=== PATIENT | male | born 2000 | race Two or more races ===

== ENCOUNTER 2022-09-15 09:36 | Emergency (ER) | payer SELFPAY ==
[~2022-09-15] VITALS: Ht 167.6 cm; Wt 63.5 kg
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
[2022-09-15] MEDS ORDERED: IBUP-1957 PO (10:08)
--- NOTE | 2022-09-15 10:17 | NUR ---
Patient discharged to home in stable condition. Written and verbal after care instructions given. Patient verbalizes understanding of instruction.
[2022-09-15 10:18] VITALS: BP 134/88
== END 2022-09-15 10:18 | disposition home or self-care (01) ==
LOC: ER 09:45
DX: M54.2 Cervicalgia (principal); M25.511 Pain in right shoulder; V89.2XXA Person injured in unspecified motor-vehicle accident, traffic, initial encounter; Y93.89 Activity, other specified; Y92.89 Other specified places as the place of occurrence of the external cause; Y99.8 Other external cause status